=== PATIENT | male | born 2000 | race African-American/Black ===

== ENCOUNTER 2022-06-26 14:06 | Emergency (ER) | payer MEDICAID ==
[~2022-06-26] VITALS: Ht 177.8 cm; Wt 60.0 kg
[2022-06-26] MEDS ORDERED: LEVETIRACETAM 1000MG PREMIX 100 ML IV ONE (14:30)
[2022-06-26 14:58] LABS: HEMATOCRIT. 44.5 % (42.0-52.0); MEAN CORPUSCULAR HEMOGLOBIN 28.4 pg (28.0-32.0); MEAN CORPUSCULAR VOLUME 84.4 fL (80.0-94.0); MEAN PLATELET VOLUME 8.3 fl (7.4-10.4); PLATELET 211 x1000/uL (130-400); RED BLOOD CELL COUNT 5.27 mill/uL (4.7-6.1)
[2022-06-26 15:06] LABS: CHLORIDE 107 mEq/L (98-107)
[2022-06-26 15:15] LABS: ETHANOL BLOOD < 10 mg/dL
[2022-06-26 15:27] LABS: PLATELET ESTIMATE NORMAL
[2022-06-26 19:08] LABS: CLARITY URINE TURBID (CLEAR); COLOR URINE YELLOW (YELLOW); KETONES URINE 3+ (NEGATIVE); LEUKOCYTE ESTERASE URINE NEGATIVE (NEGATIVE); NITRITE URINE NEGATIVE (NEGATIVE); OCCULT BLOOD URINE NEGATIVE (NEGATIVE); PH URINE 8.5 (4.5-8.0); PROTEIN URINE 1+ (NEGATIVE); SPECIFIC GRAVITY URINE 1.027 (1.005-1.030)
[2022-06-26 19:29] VITALS: BP 109/49
[2022-06-26 19:37] LABS: *AMPHETAMINES SCREEN URINE NEGATIVE (NEGATIVE); *BARBITURATES SCREEN URINE NEGATIVE (NEGATIVE); *BENZODIAZEPINES SCREEN URINE NEGATIVE (NEGATIVE); *COCAINE SCREEN URINE NEGATIVE (NEGATIVE); CANNABINOID URINE SCREEN PRESUMTIVE POSITIVE (NEGATIVE); METHADONE URINE SCREEN NEGATIVE (NEGATIVE); OPIATES URINE SCREEN NEGATIVE (NEGATIVE); PHENCYCLIDINE URINE SCREEN NEGATIVE (NEGATIVE)
== END 2022-06-26 19:30 | disposition home or self-care (01) ==
LOC: ER 14:06 → EDBD 14:06 → ER 19:30
DX: G40.909 Epilepsy, unspecified, not intractable, without status epilepticus (principal); Z87.891 Personal history of nicotine dependence
CPT/HCPCS: 36415; 80053; 80305; 80320; 81003; 83690; 85025; 96365; 99285; J1953; G0480

== ENCOUNTER 2022-08-26 19:44 | Emergency (ER) | payer SELFPAY ==
[~2022-08-26] VITALS: Ht 182.9 cm; Wt 68.0 kg
[2022-08-26] MEDS ORDERED: LEVETIRACETAM 500MG TABLET PO ONE (22:15)
[2022-08-26] MEDS ORDERED: ACETAMINOPHEN 500MG TABLET PO ONE (22:15)
[2022-08-27 01:30] VITALS: BP 102/51
[2022-08-27] MEDS ORDERED: KEPP500 MT (02:48)
== END 2022-08-27 01:50 | disposition home or self-care (01) ==
LOC: ER 19:44
DX: G40.909 Epilepsy, unspecified, not intractable, without status epilepticus (principal); F10.129 Alcohol abuse with intoxication, unspecified; F12.10 Cannabis abuse, uncomplicated; Y90.9 Presence of alcohol in blood, level not specified; Z91.14 Patient's other noncompliance with medication regimen
CPT/HCPCS: 82962; 93005; 99285

== ENCOUNTER 2022-09-08 11:48 | Emergency (ER) | payer MEDICAID ==
[~2022-09-08] VITALS: Ht 177.8 cm; Wt 77.0 kg
[~2022-09-08 11:48] MED LIST: KEPP500 MT
[2022-09-08 12:00] VITALS: BP 110/56
[2022-09-08] MEDS ORDERED: LEVETIRACETAM 500MG TABLET PO ONE (12:30)
[2022-09-08 12:35] LABS: BASOPHILS % 0.1 % (0.0-2.0); EOSINOPHILS % 0.2 % (0.0-5.0); HEMATOCRIT. 38.9 % (42.0-52.0); HEMOGLOBIN. 12.9 g/dL (14.0-18.0); LYMPHOCYTES % 13.9 % (20.0-50.0); MEAN CORPUSCULAR HEMOGLOBIN 28.2 pg (28.0-32.0); MEAN CORPUSCULAR VOLUME 85.4 fL (80.0-94.0); MEAN PLATELET VOLUME 8.2 fl (7.4-10.4); MONOCYTES % 6.7 % (2.0-8.0); NEUTROPHILS % 79.1 % (40.0-76.0); PLATELET 142 x1000/uL (130-400); RED BLOOD CELL COUNT 4.56 mill/uL (4.7-6.1); RED CELL DISTRIBUTION WIDTH 13.3 % (11.6-14.6)
[2022-09-08 12:48] LABS: CHLORIDE 109 mEq/L (98-107)
== END 2022-09-08 14:17 | disposition home or self-care (01) ==
LOC: ER 11:48
DX: G40.909 Epilepsy, unspecified, not intractable, without status epilepticus (principal); Z91.14 Patient's other noncompliance with medication regimen; F12.10 Cannabis abuse, uncomplicated
CPT/HCPCS: 36415; 80053; 85025; 99284